=== PATIENT | male | born 1965 | race Caucasian/White ===

== ENCOUNTER 2021-01-25 23:28 | Observation (INO) | payer OTHER ==
[2021-01-26] MEDS ORDERED: MORPHINE SULFATE 2 MG/ML SYRINGE IVP STA (00:09)
[2021-01-26] MEDS ORDERED: ASPIRIN 81 MG PO STA (00:09)
--- NOTE | 2021-01-26 00:15 | ED ---
General Adult HPI - General Chief complaint: Extremity Injury, Upper Stated complaint: Chest Pain Time Seen by Provider: 01/26/21 00:01 Source: patient, family Mode of arrival: ambulatory Limitations: no limitations - History of Present Illness Initial comments: Patient is a 55-year-old male presenting to the emergency Department with complaints of left-sided arm pain with radiation to left jaw that started about 3 hours ago. Patient states he was sitting down watching TV when he started having some left arm discomfort. He states it does seem to go up into his left jaw and around his left pec area. He denies any injuries or trauma to his left shoulder. He states that he is used to chronic muscle and joint aches but this feels different. He denies any shortness of breath, no fevers or chills. He states today was a normal day for him until this started a few hours ago. He did attempt to lay down and get comfortable however he was not able to sit decided to come into the ER to be seen. Patient states he doesn't history of hypertension but stopped taking medication about 4 years ago. He currently takes no medications. He did have a stress test about 5 years ago which was normal at the time. He is a nonsmoker, he does drink beers about 3-4 days a week. He denies family history of cardiac disease. Patient has no further complaints at this time. Upon arrival to the ER, his vitals are stable. - Related Data Allergies Allergy/AdvReac Type Severity Reaction Status Date / Time No Known Allergies Allergy Verified 01/25/21 23:42 Review of Systems ROS Statement: Those systems with pertinent positive or pertinent negative responses have been documented in the HPI. ROS Other: All systems not noted in ROS Statement are negative. Past Medical History Past Medical History: Hypertension History of Any Multi-Drug Resistant Organisms: None Reported Past Surgical History: Hernia Repair Past Psychological History: No Psychological Hx Reported Smoking Status: Never smoker Past Alcohol Use History: Occasional Past Drug Use History: None Reported General Exam - General Exam Comments Initial Comments: GENERAL: Patient is well-developed and well-nourished. Patient is nontoxic and in mild distress. HEAD: Atraumatic, normocephalic. EYES: Pupils equal round and reactive to light, extraocular movements intact, sclera anicteric, conjunctiva are normal. Eyelids were unremarkable. ENT: TMs normal, nares patent, oropharynx clear without exudates. Moist mucous membranes. NECK: Normal range of motion, supple without lymphadenopathy or JVD. LUNGS: Unlabored respirations. Breath sounds clear to auscultation bilaterally and equal. No wheezes rales or rhonchi. HEART: Regular rate and rhythm without murmurs, rubs or gallops. ABDOMEN: Soft, nontender, normoactive bowel sounds. No guarding, no rebound. No masses appreciated. : Deferred MUSCULOSKELETAL: Normal extremities with adequate strength and normal range of motion, no pitting or edema. No clubbing or cyanosis. NEUROLOGICAL: Patient is alert and oriented x 3. Motor and sensory are also intact. Cranial nerves II through XII grossly intact. Symmetrical smile. Normal speech, normal gait. PSYCH: Normal mood, normal affect. SKIN: Warm, Dry, normal turgor, no rashes or lesions noted. 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 No previous to compare to. Ventricular rate 90, WI interval 172, QT 362. Medical Decision Making - Medical Decision Making Patient is a 55-year-old male presenting with 3 hours of left arm pain with radiation to the left jaw and some left-sided chest discomfort. He denies any injuries or trauma to his shoulder. He does have a history of hypertension but currently does not take any medications. His initial vitals were stable. EKG shows normal sinus rhythm, no signs of acute ischemia. His labs are normal including a normal troponin, chest x-ray is normal. Given patient's age, clinical presentation, we will keep him for serial troponins and cardiac consult. Patient accepted by Edvin King for Dr. De Santiago. Patient is in agreement with this plan of care. Case discussed with Dr. Bustillos. - Lab Data Result diagrams: 01/26/21 00:27 01/26/21 00:27 Lab Results 01/26/21 01/26/21 01/26/21 Range/Units 00:27 00:27 00:27 WBC 6.7 (3.8-10.6) k/uL RBC 4.57 (4.30-5.90) m/uL Hgb 15.3 (13.0-17.5) gm/dL Hct 43.1 (39.0-53.0) % MCV 94.4 (80.0-100.0) fL MCH 33.4 (25.0-35.0) pg MCHC 35.4 (31.0-37.0) g/dL RDW 12.1 (11.5-15.5) % Plt Count 149 L (150-450) k/uL MPV 9.0 Neutrophils % 74 % Lymphocytes % 17 % Monocytes % 6 % Eosinophils % 2 % Basophils % 0 % Neutrophils # 4.9 (1.3-7.7) k/uL Lymphocytes # 1.1 (1.0-4.8) k/uL Monocytes # 0.4 (0-1.0) k/uL Eosinophils # 0.1 (0-0.7) k/uL Basophils # 0.0 (0-0.2) k/uL PT 10.1 (9.0-12.0) sec INR 0.9 (<1.2) APTT 23.3 (22.0-30.0) sec Sodium 136 L (137-145) mmol/L Potassium 4.1 (3.5-5.1) mmol/L Chloride 100 (98-107) mmol/L Carbon Dioxide 26 (22-30) mmol/L Anion Gap 10 mmol/L BUN 11 (9-20) mg/dL Creatinine 0.99 (0.66-1.25) mg/dL Est GFR (CKD-EPI)AfAm >90 (>60 ml/min/1.73 sqM) Est GFR (CKD-EPI)NonAf 84 (>60 ml/min/1.73 sqM) Glucose 110 H (74-99) mg/dL Calcium 9.3 (8.4-10.2) mg/dL Magnesium 1.8 (1.6-2.3) mg/dL Total Bilirubin 0.1 L (0.2-1.3) mg/dL AST 27 (17-59) U/L ALT 30 (4-49) U/L Alkaline Phosphatase 53 (38-126) U/L Troponin I (0.000-0.034) ng/mL Total Protein 6.9 (6.3-8.2) g/dL Albumin 4.6 (3.5-5.0) g/dL 01/26/21 Range/Units 00:27 WBC (3.8-10.6) k/uL RBC (4.30-5.90) m/uL Hgb (13.0-17.5) gm/dL Hct (39.0-53.0) % MCV (80.0-100.0) fL MCH (25.0-35.0) pg MCHC (31.0-37.0) g/dL RDW (11.5-15.5) % Plt Count (150-450) k/uL MPV Neutrophils % % Lymphocytes % % Monocytes % % Eosinophils % % Basophils % % Neutrophils # (1.3-7.7) k/uL Lymphocytes # (1.0-4.8) k/uL Monocytes # (0-1.0) k/uL Eosinophils # (0-0.7) k/uL Basophils # (0-0.2) k/uL PT (9.0-12.0) sec INR (<1.2) APTT (22.0-30.0) sec Sodium (137-145) mmol/L Potassium (3.5-5.1) mmol/L Chloride (98-107) mmol/L Carbon Dioxide (22-30) mmol/L Anion Gap mmol/L BUN (9-20) mg/dL Creatinine (0.66-1.25) mg/dL Est GFR (CKD-EPI)AfAm (>60 ml/min/1.73 sqM) Est GFR (CKD-EPI)NonAf (>60 ml/min/1.73 sqM) Glucose (74-99) mg/dL Calcium (8.4-10.2) mg/dL Magnesium (1.6-2.3) mg/dL Total Bilirubin (0.2-1.3) mg/dL AST (17-59) U/L ALT (4-49) U/L Alkaline Phosphatase (38-126) U/L Troponin I <0.012 (0.000-0.034) ng/mL Total Protein (6.3-8.2) g/dL Albumin (3.5-5.0) g/dL Disposition Clinical Impression: Chest pain, Radicular pain in left arm Disposition: ADMITTED IP TO THIS [facility] Condition: Stable Is patient prescribed a controlled substance at d/c from ED?: No Referrals: Dylon Jackson MD [Primary Care Provider] - 1-2 days Decision Date: 01/26/21 Decision Time: 01:53
[2021-01-26] MEDS ORDERED: NITROGLYCERIN SL TABS 0.4 MG TAB SUBLINGUAL STA (00:45)
[2021-01-26 00:46] LABS: Basophils % (A) 0 %; Eosinophils # (A) 0.1 k/uL (0-0.7); Eosinophils % (A) 2 %; HCT 43.1 % (39.0-53.0); HGB 15.3 gm/dL (13.0-17.5); Lymphocytes # (A) 1.1 k/uL (1.0-4.8); Lymphocytes % (A) 17 %; MCH 33.4 pg (25.0-35.0); MCHC 35.4 g/dL (31.0-37.0); MCV 94.4 fL (80.0-100.0); Monocytes # (A) 0.4 k/uL (0-1.0); Monocytes % (A) 6 %; Neutrophils # (A) 4.9 k/uL (1.3-7.7); Neutrophils % (A) 74 %; Platelet Count 149 k/uL (150-450); RBC 4.57 m/uL (4.30-5.90); RDW 12.1 % (11.5-15.5); WBC 6.7 k/uL (3.8-10.6)
[2021-01-26 01:04] LABS: Potassium 4.1 mmol/L (3.5-5.1)
[2021-01-26 01:05] LABS: ALT 30 U/L (4-49); AST 27 U/L (17-59); African American GFR (CKD) >90 (>60 ml/min/1.73 sqM); Albumin 4.6 g/dL (3.5-5.0); Alkaline Phosphatase 53 U/L (38-126); Anion Gap 10 mmol/L; Blood Urea Nitrogen 11 mg/dL (9-20); Calcium 9.3 mg/dL (8.4-10.2); Carbon Dioxide 26 mmol/L (22-30); Chloride 100 mmol/L (98-107); Glucose 110 mg/dL (74-99); Magnesium 1.8 mg/dL (1.6-2.3); Non-African American GFR(CKD) 84 (>60 ml/min/1.73 sqM); Sodium 136 mmol/L (137-145); Total Bilirubin 0.1 mg/dL (0.2-1.3); Total Protein 6.9 g/dL (6.3-8.2)
--- NOTE | 2021-01-26 01:10 | XR ---
EXAM: XR Chest, 2 Views CLINICAL HISTORY: ITS.REASON XR Reason: Chest Pain TECHNIQUE: Frontal and lateral views of the chest. COMPARISON: No relevant prior studies available. FINDINGS: Lungs: Unremarkable. Pleural space: Unremarkable. Heart: Unremarkable. Mediastinum: Unremarkable. Bones/joints: Unremarkable. IMPRESSION: Normal chest x-rays.
[2021-01-26 01:16] LABS: INR 0.9 (<1.2); Partial Thromboplastin Time 23.3 sec (22.0-30.0); Prothrombin Time 10.1 sec (9.0-12.0)
[2021-01-26] MEDS ORDERED: NITROGLYCERIN SL TABS 0.4 MG TAB SUBLINGUAL PRN (01:48)
[2021-01-26] MEDS ORDERED: KETOROLAC 15 MG/ML 1 ML VIAL IVP PRN (02:21)
[2021-01-26 06:40] VITALS: BP 170/98; PULSE 84; RESP 18; TEMP 98.7
[2021-01-27] MEDS ORDERED: ASPIRIN 325 MG TAB PO SCH (09:00)
--- NOTE | 2021-01-30 16:19 | HP ---
HISTORY AND PHYSICAL COMBINED HISTORY AND PHYSICAL AND DISCHARGE SUMMARY: CHIEF COMPLAINT: Chest pain. HISTORY OF PRESENT ILLNESS: This is a 55-year-old gentleman with a past medical history of multiple medical problems, was admitted with chest pain. However the patient left the hospital from the ER itself. The prognosis remains guarded. Please refer to the ER physician's notes and multiple progress notes and staff notes for further details. FINAL DIAGNOSIS: Chest pain, possible coronary artery disease. MMODL / IJN: [id number] /
== END 2021-01-26 06:50 | disposition left against medical advice (07) ==
LOC: EC 23:28 → 6NMEDSUR 01-26 01:34
PROVIDERS: ADMIT Hospitalist; ATTEND Hospitalist
DX: R07.89 Other chest pain (principal); I10 Essential (primary) hypertension; M79.602 Pain in left arm; M54.10 Radiculopathy, site unspecified; Z20.822 Contact with and (suspected) exposure to COVID-19; Z98.890 Other specified postprocedural states; Z53.29 Procedure and treatment not carried out because of patient's decision for other reasons
CPT/HCPCS: 96374; 96375; 99284; 36415; 93005; 80053; 83735; 84484; 85025; 85610; 85730; 87635; 71046; G0378; J2270; J1885

== ENCOUNTER → 2024-06-25 | Outpatient (CLI) | payer OTHER ==
--- NOTE | 2024-06-25 13:58 | XR ---
EXAMINATION TYPE: XR knee 4V RT DATE OF EXAM: 06/25/2024 COMPARISON: NONE HISTORY: 58-year-old male M25.561, right knee pain, dull pain, swelling, difficulty bending, previous surgery for torn meniscus TECHNIQUE: 4 views FINDINGS: Mild degenerative spurring medial compartment. Additional minimal degenerative spurring pat ellofemoral compartment. There is anterior soft tissue swelling. Trace joint effusion. No acute fract ure, subluxation, dislocation is seen. Very slight lateral patellar translation on the merchants view . IMPRESSION: Anterior soft tissue swelling. Degenerative spurring in the medial compartment. Lesser degree of dege nerative spurring patellofemoral compartment. Trace knee joint effusion. No acute osseous abnormality seen. If symptoms persist, consider MRI. [facility], , 06/25/2024 1:56 PM
== END | disposition home or self-care (01) ==
LOC: RADXRMAIN 12:31
DX: M25.561 Pain in right knee (principal); M25.461 Effusion, right knee

== ENCOUNTER → 2024-07-20 | Outpatient (CLI) | payer OTHER ==
--- NOTE | 2024-07-20 16:25 | MR ---
EXAMINATION TYPE: MR knee RT wo con DATE OF EXAM: 07/20/2024 1:45 PM COMPARISON: Radiograph 06/25/2024 CLINICAL INDICATION: Male, 58 years old with history of M25.561 R knee pain, RT Knee pain TECHNIQUE: Multiplanar, multisequence imaging of the right knee is performed without IV contrast. FINDINGS: ACL and PCL are intact. Edema on either side of the intact MCL fibers. Some heterogeneous intermediate signal femoral attachment of the LCL proper. LCL complex is otherwise intact. There is a large oblique tear extending through the posterior horn of the medial meniscus. Complex mu ltidirectional tear extends through the body of the medial meniscus with a thickness radial tear also noted. Degenerative signal extends into the anterior horn of the medial meniscus. Mild superficial irregular cartilage loss especially along the medial weightbearing aspect of the med ial compartment. There is an oblique tear involving the body of the lateral meniscus as well as inner margin radial te ar. Overall lateral compartment articular cartilage volume is maintained. There is moderate irregular cartilage fissuring along the mid trochlear. Remainder of the patellofemo ral compartment articular cartilage volume is maintained. Extensor mechanism is intact. Small to moderate knee joint effusion as well as a hvogo-or-cydqhqor sized Boo's cyst measuring 7.2 x 3.1 cm. Mild generalized subcutaneous soft tissue swelling. Trace fluid within the prepatellar bursa. Normal popliteal artery anatomy and muscle bulk. No suspicious bone marrow replacement. IMPRESSION : 1. Grade 1 MCL sprain. Low-grade versus chronic sprain at the femoral attachment of the LCL proper. 2. Through thickness radial tear involving the body of the medial meniscus. Additional complex multid irectional tears involving the remainder of the medial meniscal body and oblique tear extending along the posterior horn. 3. Inner margin fraying of the lateral meniscus as well as an oblique tear of the lateral meniscal luc dy. 4. Mild patellofemoral compartment OA with moderate irregular cartilage fissuring along the trochlear groove. 5. Fvsay-gn-oriqjqoq knee joint effusion and Boo's cyst. [facility], , 07/20/2024 4:23 PM
== END | disposition home or self-care (01) ==
LOC: RADMRIMAIN 12:33
PROVIDERS: ATTEND Orthopaedic Surgery
DX: S83.411A Sprain of medial collateral ligament of right knee, initial encounter (principal); M17.11 Unilateral primary osteoarthritis, right knee; M71.21 Synovial cyst of popliteal space [Baker], right knee; M25.461 Effusion, right knee

== ENCOUNTER → 2024-09-10 | Outpatient (CLI) | payer OTHER ==
[2024-09-10 15:49] LABS: Basophils # (A) 0.04 X 10*3/uL (0.00-0.10); Basophils % (A) 0.7 %; Eosinophils # (A) 0.09 X 10*3/uL (0.04-0.35); Eosinophils % (A) 1.5 %; HCT 46.4 % (39.6-50.0); HGB 15.2 g/dL (13.0-17.0); Lymphocytes # (A) 1.55 X 10*3/uL (0.90-5.00); Lymphocytes % (A) 25.7 %; MCH 30.4 pg (27.0-32.0); MCHC 32.8 g/dL (32.0-37.0); MCV 92.8 FL (80.0-97.0); Mean Platelet Volume 12.2 FL (9.5-12.2); Monocytes # (A) 0.52 X 10*3/uL (0.20-1.00); Monocytes % (A) 8.6 %; NRBC Per 100 WBC 0 X 10*3/uL (0.00-0.01); Neutrophils # (A) 3.83 X 10*3/uL (1.80-7.70); Neutrophils % (A) 63.3 %; Platelet Count 159 X 10*3/uL (140-440); RDW 12.3 % (11.5-14.5); WBC 6.04 X 10*3/uL (4.50-10.00)
[2024-09-10 19:37] LABS: BUN/Creat Ratio 10.55 Ratio (12.00-20.00); Blood Urea Nitrogen 11.6 mg/dL (9.0-27.0); Calcium 9.4 mg/dL (8.7-10.3); Carbon Dioxide 27.6 mmol/L (21.6-31.8); Chloride 103 mmol/L (96-109); Glucose 95 mg/dL (70-110); Potassium 4.5 mmol/L (3.5-5.5); Sodium 141 mmol/L (135-145)
== END | disposition home or self-care (01) ==
LOC: LABPAT 12:06
PROVIDERS: ATTEND Orthopaedic Surgery
DX: M23.91 Unspecified internal derangement of right knee (principal)
CPT/HCPCS: 80048; 85025; 93005

== ENCOUNTER 2024-09-18 09:52 | Day surgery (SDC) | payer OTHER ==
--- NOTE | 2024-09-17 10:33 | P.HPOR ---
History of Present Illness H&P Date: 09/17/24 Chief Complaint: Right knee pain The patient is a 59-year-old male who presents with progressive right knee pain for the past several months. He is having pain with weightbearing activities. He notes intermittent giving way. He has been been limping. Review of Systems Per HPI Past Medical History Past Medical History: No Reported History History of Any Multi-Drug Resistant Organisms: None Reported Past Surgical History: Hernia Repair, Orthopedic Surgery Additional Past Surgical History / Comment(s): rt knee arthroscopy, hernia umbilical x2 Past Anesthesia/Blood Transfusion Reactions: No Reported Reaction Smoking Status: Former smoker - Past Family History Mother Family Medical History: Cancer Medications and Allergies Home Medications Medication Instructions Recorded Confirmed Type No Known Home Medications 09/16/24 09/16/24 History Allergies Allergy/AdvReac Type Severity Reaction Status Date / Time No Known Allergies Allergy Verified 09/16/24 11:14 Physical Examination - Knee right Appearance: effusion Effusion grade: grade 1 Tenderness with palpation: anterior, medial, lateral Pain: throughout ROM Gait: limping ROM: extension: -15 degrees ROM: flexion: 110 degrees Crepitus with motion: Yes Strength: extension: 5/5 Strength: flexion: 5/5 Meniscal tests: medial meniscal tests: positive, lateral meniscal tests: positive, medial joint line pain: positive, lateral joint line pain: positive Results The patient is a well-developed well-nourished male approximately 5 foot 8, 269 pounds of endomorphic habitus. HEENT exam is nonfocal, neck is supple. He has painless passive motion of his right hip. Straight leg raise is negative. He is tender about the medial and lateral joint line of the right knee. Collaterals are stable, Fernanda's negative, Marsha's elicits medial and lateral pain. He does have an antalgic gait pattern. His distal neurovascular exam appears intact in the right lower extremity. - Diagnostic results Knee MRI: image reviewed (MRI of the right knee shows evidence of medial and lateral meniscal tears.) Assessment and Plan Assessment: Right knee internal derangement/symptomatic medial and lateral meniscal tears Plan: I talked to the patient at length regarding his condition along with treatment options. At this point he is quite symptomatic having both pain and mechanical symptoms despite conservative measures including activity modifications, home exercises, and anti-inflammatory use. After thorough discussion he opts to proceed with surgery. We will plan to proceed with right knee arthroscopy with possible partial medial and lateral meniscectomy. We will likely perform that as an outpatient procedure. Risks and benefits were discussed at length in layman's terms.
[~2024-09-18 09:52] MED LIST: HYDROmorphone 0.5 MG/0.5 ML SYRINGE IVP PRN
[2024-09-18] MEDS: LACTATED RINGERS 1,000 ML IV SCH (10:44)
[2024-09-18] MEDS: DEXAMETHASONE SOD PHOSPHATE 4 MG/ML 1 ML VIAL IV ONE (10:44)
[2024-09-18] MEDS: ONDANSETRON 4 MG/2 ML VIAL IVP ONE (10:44)
[2024-09-18] MEDS: IV FLUID CONTINUATION 1,000 ML IV ONE ×2 (10:46→12:37)
[2024-09-18] MEDS ORDERED: ACETAMINOPHEN IV (For NPO) 1,000 MG/100 ML VIAL ONE (11:44)
[2024-09-18] MEDS ORDERED: KETOROLAC 15 MG/ML 1 ML VIAL ONE (11:44)
[2024-09-18] MEDS ORDERED: SUCCINYLCHOLINE CHLORIDE 200 MG/10 ML VIAL IV ONE (11:44)
[2024-09-18] MEDS ORDERED: LIDOCAINE 1% INJ 10MG/ML (20 ML MDV) ONE (11:44)
[2024-09-18] MEDS ORDERED: HYDROmorphone (PF) 1 MG/ML ONE (11:44)
[2024-09-18] MEDS ORDERED: MIDAZOLAM 2 MG/2 ML VIAL ONE (11:44)
[2024-09-18] MEDS ORDERED: fentaNYL (PF) 50 MCG/ML 2 ML AMP ONE (11:44)
[2024-09-18] MEDS ORDERED: PROPOFOL 10 MG/ML 20 ML VIAL IV ONE (11:44)
[2024-09-18] MEDS: ceFAZolin 3 GM in SODIUM CHLORIDE 0.9% 100 ML IVPB PRN (11:50)
[2024-09-18] MEDS: EPINEPHrine (PF) 1 ML in SODIUM CHLORIDE 0.9% IRRIGATIO 3,000 ML IRRIGATION ONE (11:56)
[2024-09-18] MEDS: LACTATED RINGERS 1,000 ML IV ONE (12:27)
--- NOTE | 2024-09-18 12:30 | P.OP ---
Date of Procedure: 09/18/24 Preoperative Diagnosis: Right knee internal derangement Postoperative Diagnosis: Right knee posterior medial meniscal tear/middle one third lateral meniscal tear Procedure(s) Performed: Right knee arthroscopic partial medial meniscectomy/partial lateral meniscectomy Anesthesia: ANNIE Surgeon: Charly Sheffield Estimated Blood Loss (ml): 10 Pathology: none sent Condition: stable Disposition: PACU Indications for Procedure: The patient is a 59-year-old male who presents with progressive right knee pain and mechanical symptoms despite conservative measures. A discussion of the risks and benefits of operative intervention versus continued conservative measures was made with the patient. He opted to proceed with surgery. Operative risks include infection, neurovascular injury, development of blood clots, possible incomplete resolution of symptoms, possible worsening of sympt oms need for subsequent procedures was discussed. Informed consent was obtained. Operative Findings: As below Description of Procedure: The patient was brought to the operating room, and after induction of general anesthesia examined the right knee. Collaterals were stable, Fernanda was negative, and posterior drawer was negative. The right lower extremity was prepped and draped in a normal fashion. A superior lateral portal was made through a 3 mm skin incision superior and lateral to the patella. This was used for outflow. A lateral portal was made through a 5 mm vertical skin incision lateral to the patella tendon above the joint line. Diagnostic arthroscopy was performed. On inspection of the medial compartment, a complex tear involving the posterior horn of the medial meniscus in the white-red junction was noted. This was not amenable to repair.. This was debrided back to stable base with straight baskets and a motorized shaver. The remaining medial meniscus was stable and intact. Grade 2 chondral changes were noted diffusely in the medial compartment. On inspection of the notch, the anterior cruciate ligament melissa eared to be intact. On inspection of the lateral compartment, a radial tear involving the middle one third of the lateral meniscus was noted in the white- white junction. This is debrided back to stable base with a motorized shaver.. On inspection of the patellofemoral articulation, grade 3 chondral changes were noted diffusely in the femoral trochlea. No loose chondral fragments were noted. The gutters were clear debris. The knee was then thoroughly irrigated. The portals were closed with Steri-Strips. A sterile dressing was applied in addition to a compression stocking. The patient was awoken from general anesthesia and transferred to recovery room in good condition. Blood loss was estimated at 10 mL. No complications were incurred.
[2024-09-18 12:44] VITALS: TEMP 97.2
[2024-09-18] MEDS: HYDROcodone/APAP 5-325MG 1 EACH TAB PO STA (13:25)
[2024-09-18 13:55] VITALS: BP 156/80; PULSE 73; RESP 14
== END 2024-09-18 14:28 | disposition home or self-care (01) ==
LOC: OR 09:52
PROVIDERS: ATTEND Orthopaedic Surgery
DX: S83.241A Other tear of medial meniscus, current injury, right knee, initial encounter (principal); S83.281A Other tear of lateral meniscus, current injury, right knee, initial encounter; G47.33 Obstructive sleep apnea (adult) (pediatric); E66.01 Morbid (severe) obesity due to excess calories; Z68.41 Body mass index [BMI] 40.0-44.9, adult; Z98.890 Other specified postprocedural states; Z87.891 Personal history of nicotine dependence; Z90.89 Acquired absence of other organs; X58.XXXA Exposure to other specified factors, initial encounter
CPT/HCPCS: 29880; J2250; J0330; J1100; J0690; J2405; J0171; J2003; J3010; J1171; J0131; J1885; J2704